=== PATIENT | female | born 1980 | race Hispanic/Latino ===

== ENCOUNTER 2016-04-29 22:34 | Emergency (ER) | payer MEDICAID | END 2016-04-29 22:45 | disposition left against medical advice (07) | LOC: ED 22:34 | DX: M25.572 Pain in left ankle and joints of left foot (principal); Z53.21 Procedure and treatment not carried out due to patient leaving prior to being seen by health care provider ==

== ENCOUNTER 2016-06-21 04:48 | Emergency (ER) | payer MEDICAID ==
[2016-06-21 05:41] LABS: Basophils % (Auto) 0.4 % (0.0-1.8); Eosinophils % (Auto) 2.4 % (0.0-4.3); Hemoglobin 14.7 gm/dl (10.1-14.3); Mean Corpuscular HGB Conc 34 % (30-34); Mean Corpuscular Hemoglobin 32 pg (28-32); Mean Corpuscular Volume 93 fl (79-97); Platelet Count 215 K/mm3 (140-440); Red Blood Count 4.64 M/mm3 (3.65-5.03); White Blood Count 8.4 K/mm3 (4.5-11.0)
[2016-06-21 06:05] LABS: Alanine Aminotransferase 29 units/L (7-56); Albumin 4.2 g/dL (3.9-5); Albumin/Globulin Ratio 1.4 %; Alkaline Phosphatase 71 units/L (35-129); Anion Gap 22 mmol/L; Blood Urea Nitrogen 7 mg/dL (7-17); Calcium 9.1 mg/dL (8.4-10.2); Carbon Dioxide 21 mmol/L (22-30); Chloride 104.7 mmol/L (98-107); Glucose 101 mg/dL (65-100); Potassium 3.5 mmol/L (3.6-5.0); Sodium 144 mmol/L (137-145); Total Protein 7.2 g/dL (6.3-8.2)
--- NOTE | 2016-06-21 10:14 | Emergency Department Report ---
ED Seizure HPI - General Chief Complaint: Seizure Stated Complaint: SEIZURE Time Seen by Provider: 06/21/16 10:11 Source: patient, family Mode of arrival: Stretcher Limitations: Other - History of Present Illness MD Complaint: seizure -: Gradual, hour(s) Description of Episode: tonic-clonic movement -: second(s) Witnessed:: Yes Trauma: No Seizure History: known seizure disorder, other (alcohol use) Place: home Possible Precipitating Event: none Associated Symptoms: denies other symptoms. denies: chest pain, confusion, cough, diaphoresis, fever/chills, loss of appetite, malaise, rash, shortness of breath, syncope, weakness, tongue injury, shoulder dislocation - Related Data Home Medications Medication Instructions Recorded Confirmed Last Taken Paroxetine HCl [Paxil] 30 mg PO DAILY 06/21/16 06/21/16 Unknown levETIRAcetam [Keppra TAB] 750 mg PO BID 06/21/16 06/21/16 Unknown Previous Rx's Medication Instructions Recorded Last Taken Type levETIRAcetam [Keppra TAB] 1,000 mg PO BID #30 tablet 06/21/16 Unknown Rx Allergies Allergy/AdvReac Type Severity Reaction Status Date / Time apple Allergy Vomiting Verified 06/21/16 05:11 Latex, Natural Rubber Allergy Rash Verified 06/21/16 05:11 ondansetron HCl Allergy Rash Verified 06/21/16 05:12 [From Zofran (as hydrochloride)] Sulfa (Sulfonamide Allergy Anaphylaxis Verified 06/21/16 05:11 Antibiotics) sulfamethoxazole Allergy Anaphylaxis Verified 06/21/16 05:11 [From Bactrim] tramadol HCl [From Ultram] Allergy Rash Verified 06/21/16 05:12 trimethoprim [From Bactrim] Allergy Anaphylaxis Verified 06/21/16 05:11 ED Review of Systems ROS: Stated complaint: SEIZURE Other details as noted in HPI Other: GENERAL: No weight change, fatigue, weakness, fever, chills, or night sweats SKIN: No changes in skin or hair, no itching, no rashes, no jaundice HEAD: No trauma, headache, or visual changes EYES: No blurriness, tearing, itching, acute visual loss, conjunctival discoloration, or scleral icterus EARS: No hearing loss, tinnitus, vertigo, or earache NOSE: No rhinorrhea, stuffiness, sneezing, itching, or epistaxis MOUTH: No bleeding gums, hoarseness, sore throat, or swelling CARDIAC: No new murmur, chest pain, palpitations, dyspnea on exertion, orthopnea , PND, or edema RESPIRATORY: No shortness of breath, wheeze, cough, sputum production, hemoptysis, pneumonia, asthma, bronchitis, or emphysema GI: No change in appetite, nausea, vomiting, dysphagia, change in bowel frequency, diarrhea, constipation, bleeding, hematemesis, melena, hematochezia, or abdominal pain URINARY: No frequency, urgency, polyuria, dysuria, hematuria, or incontinence MUSCULOSKELETAL: No muscle weakness, joint stiffness, decrease in range of motion, redness, swelling, tenderness NEUROLOGIC: seizures HEMATOLOGIC: No anemia, easy bruising, bleeding, petechiae, or purpura ENDOCRINE: No hot or cold intolerance, sweating, polyuria, polydipsia or, polyphagia no thyroid problems PSYCHIATRIC: No change in mood, no anxiety, no depression ED Past Medical Hx - Past Medical History Hx Hypertension: No Hx CVA: No Hx Heart Attack/AMI: No Hx Congestive Heart Failure: No Hx Diabetes: No Hx Deep Vein Thrombosis: Yes Hx Pulmonary Embolism: No Hx GERD: No Hx Liver Disease: No Hx Renal Disease: No Hx of Cancer: Yes (uterine) Hx Sickle Cell Disease: No Hx Headaches / Migraines: No Hx Seizures: Yes Hx Kidney Stones: No Hx Psychiatric Treatment: Yes Hx Asthma: No Hx COPD: No Hx Tuberculosis: No Hx Dementia: No Hx HIV: No Additional medical history: 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, factor 8 deficient ( VWD) - Surgical History Past Surgical History?: Yes Additional Surgical History: hysterectomy - Social History Smoking Status: Current Every Day Smoker Substance Use Type: Alcohol - Medications Home Medications: Home Medications Medication Instructions Recorded Confirmed Last Taken Type Paroxetine HCl [Paxil] 30 mg PO DAILY 06/21/16 06/21/16 Unknown History levETIRAcetam [Keppra TAB] 1,000 mg PO BID #30 tablet 06/21/16 Unknown Rx levETIRAcetam [Keppra TAB] 750 mg PO BID 06/21/16 06/21/16 Unknown History ED Physical Exam - General Limitations: Other - Other Other exam information: Physical examGENERAL: Patient in no acute distress HEAD: Normocephalic, atraumatic EYES: PERRLA, EOM intact, no scleral icterus, no papilledema, no conjunctival hemorrhage, visual mayer and acuity wnl, NOSE: No tenderness, discharge, sinus tenderness MOUTH: No erythema, bleeding, exudate HEART: Regular rate and rhythm, no murmur, S1-S2 are auscultated, pulses are symmetric LUNGS: No wheezing, rales, rhonchi, bilateral breath sounds ABDOMEN: Normal bowel sounds, no tenderness, no rebound, no guarding, no masses , no CVA tenderness MUSCULOSKELETAL: Normal joint range of motion, no redness, no swelling, no tenderness NEUROLOGIC: GCS 15, Alert and Oriented x3, Cranial nerves intact, normal sensation, normal strength, normal gait, no cerebellar deficit PSYCHIATRIC: No homicidal or suicidal ideation, no anxiety, no depression, no hallucinations SKIN: Skin is warm and dry, no wounds, no rashes ED Course Vital Signs 06/21/16 06/21/16 06/21/16 04:52 05:00 05:15 Temperature 98.1 F Pulse Rate 84 Respiratory Rate Blood Pressure 120/77 120/77 O2 Sat by Pulse 97 97 98 Oximetry 06/21/16 06/21/16 06/21/16 05:30 05:45 05:57 Temperature Pulse Rate Respiratory 18 Rate Blood Pressure 115/77 115/77 O2 Sat by Pulse 97 97 Oximetry 06/21/16 06/21/16 06/21/16 06:00 06:15 06:30 Temperature Pulse Rate Respiratory Rate Blood Pressure 120/80 120/80 114/67 O2 Sat by Pulse 98 97 97 Oximetry 06/21/16 06/21/16 06/21/16 06:45 07:00 07:15 Temperature Pulse Rate Respiratory Rate Blood Pressure 117/74 112/73 114/74 O2 Sat by Pulse 97 97 96 Oximetry 06/21/16 06/21/16 06/21/16 07:30 07:45 08:00 Temperature Pulse Rate Respiratory Rate Blood Pressure 102/67 111/68 112/82 O2 Sat by Pulse 96 96 97 Oximetry 06/21/16 06/21/16 06/21/16 08:15 08:30 08:45 Temperature Pulse Rate Respiratory Rate Blood Pressure 116/85 122/79 122/79 O2 Sat by Pulse 97 96 96 Oximetry 06/21/16 06/21/16 06/21/16 09:01 09:15 09:31 Temperature Pulse Rate Respiratory Rate Blood Pressure 122/79 122/79 122/79 O2 Sat by Pulse 97 96 95 Oximetry 06/21/16 06/21/16 06/21/16 09:45 10:00 10:15 Temperature Pulse Rate Respiratory Rate Blood Pressure 113/81 125/87 110/74 O2 Sat by Pulse 96 99 98 Oximetry 06/21/16 06/21/16 06/21/16 10:30 10:45 11:00 Temperature Pulse Rate Respiratory Rate Blood Pressure 123/81 124/81 106/69 O2 Sat by Pulse 97 97 97 Oximetry 06/21/16 06/21/16 06/21/16 11:15 11:30 11:45 Temperature Pulse Rate Respiratory Rate Blood Pressure 110/72 129/80 129/80 O2 Sat by Pulse 97 98 97 Oximetry ED Medical Decision Making - Lab Data Result diagrams: 06/21/16 05:18 06/21/16 05:18 - EKG Data When compared to previous EKG there are: no significant change - Medical Decision Making Patient comfortable. Updated with results. Plan discharge with outpatient follow-up. Patient agrees with plan and will return if symptoms worsen. Critical care attestation.: If time is entered above; I have spent that time in minutes in the direct care of this critically ill patient, excluding procedure time. ED Disposition Clinical Impression: Seizure disorder Disposition: DISCHARGED TO HOME OR SELFCARE Is pt being admited?: No Condition: Stable Instructions: Recurrent Seizures Adult (ED) Prescriptions: levETIRAcetam [Keppra TAB] 1,000 mg PO BID #30 tablet Referrals: JAMAICA VINSON MD [Staff Physician] - 3-5 Days PRIMARY CARE, [Primary Care Provider] - 2-3 Days
[2016-06-21] MEDS ORDERED: KEPPRA PO ONE (11:37)
[2016-06-21 12:14] VITALS: BP 129/80
== END 2016-06-21 12:14 | disposition home or self-care (01) ==
LOC: ED 04:48
DX: G40.909 Epilepsy, unspecified, not intractable, without status epilepticus (principal); F17.200 Nicotine dependence, unspecified, uncomplicated; Z86.718 Personal history of other venous thrombosis and embolism; Z85.42 Personal history of malignant neoplasm of other parts of uterus; Z91.018 Allergy to other foods; Z88.2 Allergy status to sulfonamides; Z91.040 Latex allergy status; Z88.8 Allergy status to other drugs, medicaments and biological substances
CPT/HCPCS: 36415; 80048; 80053; 85025; 93005; 93010; 99284; G0480; 80320